=== PATIENT | male | born 1950 | race Caucasian/White ===

== ENCOUNTER → 2019-12-29 | Outpatient (CLI) | payer MEDICARE ==
--- NOTE | 2019-12-29 13:45 | RADIOLOGY REPORT (SQ) ---
EXAM DESCRIPTION: CT RT UPPER EXTREMITY WITHOUT IMAGES COMPLETED DATE/TIME: 12/29/2019 9:47 am REASON FOR STUDY: M25.511 PAIN IN RIGHT SHOULDER M25.511 PAIN IN RIGHT SHOULDER COMPARISON: None. TECHNIQUE: Axial imaging performed through the rightshoulder with reformatted oblique coronal and ob lique sagittal imaging windowed for bone and soft tissues. All CT scanners at this facility use dose modulation, iterative reconstruction, and/or weight based d osing when appropriate to reduce radiation dose to as low as reasonably achievable (ALARA). [facility]: Dose Right [facility]: CareDose [facility]: Dose Right [facility]: Teradose 4D [facility]: ParkerVision RADIATION DOSE: CT Rad equipment meets quality standard of care and radiation dose reduction techniq ues were employed. CTDIvol: 5.7 mGy. DLP: 141 mGy-cm. mGy. LIMITATIONS: None. FINDINGS: SOFT TISSUES: Grossly normal muscle bulk and attenuation. No axillary lymphadenopathy. N o soft tissue mass demonstrated. BONY ARCHITECTURE: Normal mineralization and alignment. GLENOHUMERAL JOINT: Mild degenerative changes, noting irregularity of the anterior, inferior glenoid as well as a Hill-Sachs compression deformity suggesting previous anterior, inferior glenohumeral dis location. No acute findings. ACROMION AND AC JOINT: Moderate acromioclavicular arthropathy. ROTATOR CUFF: No discrete fatty atrophy. GLENOID, LABRUM AND BICEPS: Not adequately evaluated in the absence of intra-articular contrast. OTHER: No other significant finding. IMPRESSION: 1. Moderate glenohumeral and acromioclavicular arthropathy. 2. Sequela of previous anterior, inferior glenohumeral dislocation. TECHNICAL DOCUMENTATION: JOB ID: [id number] Quality ID # [id number]: Final reports with documentation of one or more dose reduction techniques (e.g., Au tomated exposure control, adjustment of the mA and/or kV according to patient size, use of iterative reconstruction technique) 2010 [employer]- All Rights Reserved Reading location - IP/workstation name: [email or web address]
== END ==
LOC: RAD 09:33
PROVIDERS: ATTEND Nurse Practitioner Gerontology
DX: I10 Essential (primary) hypertension (principal); G47.62 Sleep related leg cramps; M25.511 Pain in right shoulder; M79.671 Pain in right foot